=== PATIENT | male | born 1940 | race Caucasian/White ===

== ENCOUNTER 2020-06-03 19:15 | Inpatient (IN) | payer MEDICARE, OTHER ==
--- NOTE | 2020-06-03 22:10 | EDM.PDOC ---
ED HPI GENERAL MEDICAL PROBLEM - General Chief Complaint: General Stated Complaint: "feels out of sorts" Time Seen by Provider: 06/03/20 19:50 Source of Information: Reports: Patient History Limitations: Reports: No Limitations - History of Present Illness INITIAL COMMENTS - FREE TEXT/NARRATIVE: Kiko is a 79 male who presents to the ED, accompanied by his , with complaints of feeling ill. states he has been sleeping a lot the last few days. States he has been confused at times as well. He admits he has been out of sorts. He states he is able to still drive and drove them to the ED tonight. He states he has been short of breath as well. He states he has been really tired and fatigued. Upon arrival his oxygen saturation was 81% on room air. - Related Data Allergies Allergy/AdvReac Type Severity Reaction Status Date / Time hydrocortisone Allergy Severe Chest Pain Verified 06/03/20 19:50 [From Cortizone-10] Home Meds: Home Meds Aspirin [Lo-Dose Aspirin EC] 81 mg PO DAILY 01/25/18 [History] Cholecalciferol (Vitamin D3) [Vitamin D3] 5,000 units PO DAILY 01/25/18 [History] Cinnamon Bark [Cinnamon] 500 mg PO DAILY 01/25/18 [History] Insulin Glarg,Human.Rec.Analog [Lantus Solostar] 44 units SQ BEDTIME 01/25/18 [History] Lisinopril 10 mg PO DAILY 01/25/18 [History] Metoprolol Succinate [Toprol Xl] 25 mg PO DAILY 01/25/18 [History] Multivitamin [Multivitamins] 1 each PO DAILY 01/25/18 [History] Simvastatin [Zocor] 20 mg PO DAILY 01/25/18 [History] SitaGLIPtin [Januvia] 100 mg PO DAILY 01/25/18 [History] metFORMIN HCl [Metformin HCl] 1,000 mg PO BID 01/25/18 [History] Past Medical History HEENT History: Reports: Cataract, Impaired Vision Other HEENT History: cataract left eye Cardiovascular History: Reports: High Cholesterol, Hypertension Respiratory History: Reports: None, SOB, Other (See Below) Other Respiratory History: HX OF LUNG NODULE Gastrointestinal History: Reports: None Genitourinary History: Reports: None, BPH Musculoskeletal History: Reports: Arthritis Other Musculoskeletal History: knee, hip thumb arthritis Neurological History: Reports: None, Other (See Below) Other Neuro History: PARESTHESIAS Psychiatric History: Reports: None Endocrine/Metabolic History: Reports: Diabetes, Type II, Obesity/BMI 30+, Vitamin D Deficiency Hematologic History: Reports: None Immunologic History: Reports: None Oncologic (Cancer) History: Reports: None Dermatologic History: Reports: None - Infectious Disease History Infectious Disease History: Reports: Chicken Pox, Measles, Mumps - Past Surgical History HEENT Surgical History: Reports: Adenoidectomy, Cataract Surgery, Tonsillectomy Cardiovascular Surgical History: Reports: None GI Surgical History: Reports: Appendectomy, Colonoscopy Male Surgical History: Reports: None Endocrine Surgical History: Reports: None Neurological Surgical History: Reports: None Musculoskeletal Surgical History: Reports: None Social & Family History - Family History Family Medical History: Noncontributory - Tobacco Use Tobacco Use Status *Q: Never Tobacco User - Caffeine Use Caffeine Use: Reports: Coffee Caffeine Use Comment: 2 cups daily - Recreational Drug Use Recreational Drug Use: No ED ROS GENERAL - Review of Systems Review Of Systems: See Below Constitutional: Reports: Fatigue. Denies: Fever, Chills, Decreased Appetite HEENT: Reports: No Symptoms. Denies: Sinus Problem, Throat Pain Respiratory: Reports: Shortness of Breath, Cough. Denies: Wheezing Cardiovascular: Denies: Chest Pain, Lightheadedness, Orthopnea, Palpitations Endocrine: Reports: No Symptoms GI/Abdominal: Reports: No Symptoms : Reports: No Symptoms Musculoskeletal: Reports: Muscle Stiffness, Other (body aches) Skin: Reports: No Symptoms Neurological: Reports: Confusion. Denies: Dizziness, Headache, Pre-Existing Deficit, Difficulty Walking, Gait Disturbance Psychiatric: Reports: No Symptoms ED EXAM, GENERAL - Physical Exam Exam: See Below Exam Limited By: No Limitations General Appearance: Alert, Mild Distress, Obese Eye Exam: Bilateral Eye: Normal Inspection Ears: Normal External Exam, Hearing Grossly Normal Nose: Normal Inspection, Normal Mucosa, No Blood Throat/Mouth: Normal Inspection, Normal Lips, Normal Oropharynx, Normal Voice, No Airway Compromise Head: Atraumatic, Normocephalic Neck: Normal Inspection, Supple Respiratory/Chest: No Accessory Muscle Use, Decreased Breath Sounds, Crackles Cardiovascular: Regular Rate, Rhythm, No Murmur GI/Abdominal: Non-Tender, No Organomegaly, Other (morbid obesity) Extremities: Non-Tender, Pedal Edema (1+ bilaterally) Neurological: Alert, Oriented. No: Slow to Respond Psychiatric: Normal Affect, Normal Mood Skin Exam: Warm, Dry, Intact, Normal Color, No Rash Course - Vital Signs Last Recorded V/S: Last Vital Signs Temp 99.5 F 06/03/20 20:20 Pulse 99 06/03/20 20:20 Resp 24 H 06/03/20 20:20 BP 140/79 06/03/20 20:20 Pulse Ox 95 06/03/20 20:20 - Orders/Labs/Meds Orders: Active Orders 24 hr Category Date Time Status Patient Status Manage Transfer [TRANSFER] Routine ADT 06/03/20 21:26 Active CXR [Chest 2V] [CR] Stat Exams 06/03/20 20:33 Taken Resuscitation Status Routine Resus Stat 06/03/20 21:27 Ordered Labs: Laboratory Tests 06/03/20 06/03/20 06/03/20 Range/Units 19:45 19:45 19:45 WBC 5.5 (5.0-10.0) 10^3/uL RBC 4.88 (4.50-6.00) 10^6/uL Hgb 14.4 (14.0-18.0) g/dL Hct 42.5 (40.0-54.0) % MCV 87.1 (82.0-94.0) fL MCH 29.5 (27.0-32.0) pg MCHC 33.9 (33.0-38.0) g/dL RDW Coeff of Rhys 14.7 (11.0-15.0) % Plt Count 155 (150-400) 10^3/uL Neut % (Auto) 77.9 (35-85) % Lymph % (Auto) 12.6 (10-55) % [place] % (Auto) 9.3 (0-16) % Eos % (Auto) 0 (0-5) % Baso % (Auto) 0.2 (0-3) % Neut # (Auto) 4.25 (1.80-7.00) 10^3/uL Lymph # (Auto) 0.69 L (1.00-4.80) 10^3/uL [place] # (Auto) 0.51 (0.00-0.80) 10^3/uL Eos # (Auto) 0.00 (0.00-0.45) 10^3/uL Baso # (Auto) 0.01 10^3/uL D-Dimer, Quantitative (0.00-0.50) Sodium 135 L (136-145) mEq/L Potassium 4.7 (3.5-5.0) mEq/L Chloride 99 (98-106) mEq/L Carbon Dioxide 25 (21-32) mmol/L BUN 42 H D (7-18) mg/dL Creatinine 1.7 H D (0.7-1.3) mg/dL Est Cr Clr Drug Dosing 37.53 mL/min Estimated GFR (MDRD) 39 L (>=60) mL/min Glucose 202 H D (75-99) mg/dL Lactic Acid (0.4-2.0) mmol/L Calcium 8.9 (8.4-10.1) mg/dL Total Bilirubin 0.6 (0.0-1.0) mg/dL AST 33 (15-37) U/L ALT 34 (12-78) U/L Alkaline Phosphatase 65 (46-116) U/L C-Reactive Protein 9.1 H (0.2-0.8) mg/dL Total Protein 7.9 (6.4-8.2) g/dL Albumin 3.5 (3.4-5.0) g/dL SARS CoV-2 RNA Rapid DEB Positive H (NEGATIVE) 06/03/20 06/03/20 Range/Units 19:45 19:45 WBC (5.0-10.0) 10^3/uL RBC (4.50-6.00) 10^6/uL Hgb (14.0-18.0) g/dL Hct (40.0-54.0) % MCV (82.0-94.0) fL MCH (27.0-32.0) pg MCHC (33.0-38.0) g/dL RDW Coeff of Rhys (11.0-15.0) % Plt Count (150-400) 10^3/uL Neut % (Auto) (35-85) % Lymph % (Auto) (10-55) % [place] % (Auto) (0-16) % Eos % (Auto) (0-5) % Baso % (Auto) (0-3) % Neut # (Auto) (1.80-7.00) 10^3/uL Lymph # (Auto) (1.00-4.80) 10^3/uL [place] # (Auto) (0.00-0.80) 10^3/uL Eos # (Auto) (0.00-0.45) 10^3/uL Baso # (Auto) 10^3/uL D-Dimer, Quantitative 1.22 H (0.00-0.50) Sodium (136-145) mEq/L Potassium (3.5-5.0) mEq/L Chloride (98-106) mEq/L Carbon Dioxide (21-32) mmol/L BUN (7-18) mg/dL Creatinine (0.7-1.3) mg/dL Est Cr Clr Drug Dosing mL/min Estimated GFR (MDRD) (>=60) mL/min Glucose (75-99) mg/dL Lactic Acid 1.5 (0.4-2.0) mmol/L Calcium (8.4-10.1) mg/dL Total Bilirubin (0.0-1.0) mg/dL AST (15-37) U/L ALT (12-78) U/L Alkaline Phosphatase (46-116) U/L C-Reactive Protein (0.2-0.8) mg/dL Total Protein (6.4-8.2) g/dL Albumin (3.4-5.0) g/dL SARS CoV-2 RNA Rapid DEB (NEGATIVE) Departure - Departure Time of Disposition: 21:25 Disposition: Admitted As Inpatient 66 Clinical Impression: Hypoxia, Palliative care patient, COVID-19 - Discharge Information Referrals: Erika Melara VERIFIER [Primary Care Provider] - Forms: ED Department Discharge Sepsis Event Note (ED) - Evaluation Sepsis Screening Result: No Definite Risk - Focused Exam Vital Signs: Vital Signs Temp Pulse Resp BP Pulse Ox 06/03/20 20:20 99.5 F 99 24 H 140/79 95 06/03/20 19:50 94 L 06/03/20 19:45 86 L 06/03/20 19:40 99.2 F 102 H 17 144/75 H 81 L - Problem List & Annotations (1) COVID-19 SNOMED Code(s): 263360364 Code(s): U07.1 - COVID-19 Status: Acute (2) Hypoxia SNOMED Code(s): 356514813 Code(s): R09.02 - HYPOXEMIA Status: Acute Priority: High (3) Palliative care patient SNOMED Code(s): 662602597, 632450764 Code(s): Z51.5 - ENCOUNTER FOR PALLIATIVE CARE Status: Acute - Problem List Review Problem List Initiated/Reviewed/Updated: Yes - My Orders Last 24 Hours: My Active Orders 06/03/20 20:33 CXR [Chest 2V] [CR] Stat 06/03/20 21:26 Patient Status Manage Transfer [TRANSFER] Routine 06/03/20 21:27 Resuscitation Status Routine - Assessment/Plan Admission H&P: Please use this note as an admission H&P Last 24 Hours: My Active Orders 06/03/20 20:33 CXR [Chest 2V] [CR] Stat 06/03/20 21:26 Patient Status Manage Transfer [TRANSFER] Routine 06/03/20 21:27 Resuscitation Status Routine Plan: Kiko was immediately placed on oxygen via nasal canula at 6 lpm which did only bring his oxygen to 86%. Switched to nonrebreather at 15 lpm which did bring oxygen saturation to 96%. Covid positive and discussed into detail with Kiko his current status. Confusion thru the week was likely secondary to hypoxia. I am concerned that Kiko may worsen during his stay and discussed transfer to higher level of care. Kiko was adamant about not being transferred and wished to be a Code Level 2. Discussed Code levels and he voiced his wishes to not ever being intubated or start CPR. He states " when the good Lord wants him he is ready". I did advise him we will need to keep him on non-rebreather at this time to maintain his oxygen saturation above 90%. Consulted with Dr. Arnold in regards to Kiko's condition and will admit to acute care. Will start IV Remdesivir. Will refrain from steroids at this time with known allergy to hydrocortisone. Patient transferred to the floor in satisfactory condition.
[2020-06-03] MEDS ORDERED: Ibuprofen 200 MG Tab PO PRN (22:48)
[2020-06-03] MEDS ORDERED: Sodium Chloride 0.9% 10 ML Syringe FLUSH PRN (22:48)
[2020-06-04] MEDS: Acetaminophen 325 MG Tab PO PRN ×3 (00:17→22:57)
[2020-06-04] MEDS: Enoxaparin 40 MG/0.4 ML Syringe SUBCUT SCH ×3 (00:18→21:48)
[2020-06-04] MEDS: Enoxaparin 80 MG/0.8 ML Syringe SUBCUT SCH ×3 (00:18→21:48)
[2020-06-04] MEDS: Simvastatin 20 MG Tab PO SCH (07:58)
[2020-06-04] MEDS: Zinc Sulfate 220 MG Cap PO SCH (07:59)
[2020-06-04] MEDS: Lisinopril 10 MG Tab PO SCH (07:59)
[2020-06-04] MEDS: Ascorbic Acid 500 MG Tab PO SCH (07:59)
[2020-06-04] MEDS: Cholecalciferol (Vitamin D3) 25 MCG Tab PO SCH (08:00)
[2020-06-04] MEDS: Metoprolol Succinate 25 MG Tab.ER PO SCH (08:00)
[2020-06-04] MEDS: Insulin Glarg,Human.Rec.Analog 100 Unit/ML SUBCUT SCH ×2 (08:07→20:02)
[2020-06-04] MEDS: Aspirin 81 MG Tab.EC PO SCH (08:56)
[2020-06-04] MEDS ORDERED: 50% Dextrose in Water 50 ML Syringe IV PRN (10:05)
[2020-06-04] MEDS ORDERED: Glucagon,Human Recombinant 1 MG Vial IM PRN (10:05)
[2020-06-04] MEDS: Insulin Lispro 100 Units/ML 3 ML Vial SUBCUT SCH ×3 (12:03→20:04)
[2020-06-04] MEDS: metFORMIN 500 MG Tab PO SCH ×2 (12:04→19:59)
[2020-06-04] MEDS: REMDESIVIR (EUA) 100 MG in Sodium Chloride 0.9% 100 ML IV SCH (21:47)
[2020-06-05] MEDS: Acetaminophen 325 MG Tab PO PRN ×2 (04:07→16:59)
[2020-06-05] MEDS ORDERED: [UNRECOGNIZED DRUG - OTHER] SUBCUT SCH (07:00)
[2020-06-05] MEDS ORDERED: INSULIN GLARG HUMAN REC ANALOG 15 UNIT SUBCUT SCH (07:00)
[2020-06-05] MEDS: Ascorbic Acid 500 MG Tab PO SCH (07:36)
[2020-06-05] MEDS: Lisinopril 10 MG Tab PO SCH (07:36)
[2020-06-05] MEDS: Zinc Sulfate 220 MG Cap PO SCH (07:36)
[2020-06-05] MEDS: Simvastatin 20 MG Tab PO SCH (07:37)
[2020-06-05] MEDS: Aspirin 81 MG Tab.EC PO SCH (07:37)
[2020-06-05] MEDS: Metoprolol Succinate 25 MG Tab.ER PO SCH (07:37)
[2020-06-05] MEDS: metFORMIN 500 MG Tab PO SCH ×2 (07:37→19:46)
[2020-06-05] MEDS: Insulin Lispro 100 Units/ML 3 ML Vial SUBCUT SCH ×4 (07:44→20:06)
[2020-06-05] MEDS: Insulin Glarg,Human.Rec.Analog 100 Unit/ML SUBCUT SCH ×2 (07:46→19:46)
--- NOTE | 2020-06-05 07:47 | PCM.PN ---
- General Info Date of Service: 06/04/20 Admission Dx/Problem (Free Text): Kiko is a 79 yo male who was admitted from the ED yesterday evening secondary to hypoxia with positive COVID 19. Patient had been experiencing some confusion over the last week and an increase in respiratory effort. Was admitted with palliative status as patient was found to be in moderate to severe hypoxia and placed on non-rebreather at 15 lpm. Kiko did not want anything further done or transfer to outside facility. Patient states he is feeling great this morning and denies any shortness of breath. States his confusion is a lot better as well. Denies feeling out of sorts anymore. States he has had a great appetite and doesn't feel he needs oxygen anymore. Functional Status: Reports: Pain Controlled, Tolerating Diet, Ambulating. Denies: New Symptoms - Review of Systems General: Reports: No Symptoms HEENT: Reports: No Symptoms Pulmonary: Reports: No Symptoms Cardiovascular: Reports: No Symptoms Gastrointestinal: Reports: No Symptoms Genitourinary: Reports: No Symptoms Musculoskeletal: Reports: No Symptoms Skin: Reports: No Symptoms Neurological: Reports: No Symptoms Psychiatric: Reports: No Symptoms - Patient Data Vitals - Most Recent: Last Vital Signs Temp 99.1 F 06/05/20 04:00 Pulse 77 06/05/20 07:37 Resp 20 06/05/20 04:00 BP 110/52 L 06/05/20 07:37 Pulse Ox 93 L 06/05/20 04:00 Weight - Most Recent: 272 lb 9.6 oz Lab Results Last 24 Hours: Laboratory Results - last 24 hr 06/04/20 06/04/20 06/05/20 Range/Units 05:11 05:11 07:02 WBC 3.9 L 4.0 L (5.0-10.0) 10^3/uL RBC 4.29 L 4.26 L (4.50-6.00) 10^6/uL Hgb 12.8 L 12.5 L (14.0-18.0) g/dL Hct 37.9 L 37.3 L (40.0-54.0) % MCV 88.3 87.6 (82.0-94.0) fL MCH 29.8 29.3 (27.0-32.0) pg MCHC 33.8 33.5 (33.0-38.0) g/dL RDW Coeff of Rhys 14.7 14.5 (11.0-15.0) % Plt Count 153 175 (150-400) 10^3/uL Neut % (Auto) 68.4 60.9 (35-85) % Lymph % (Auto) 20.9 28.4 (10-55) % [place] % (Auto) 10.4 10.1 (0-16) % Eos % (Auto) 0 0.3 (0-5) % Baso % (Auto) 0.3 0.3 (0-3) % Neut # (Auto) 2.69 2.41 (1.80-7.00) 10^3/uL Lymph # (Auto) 0.82 L 1.12 (1.00-4.80) 10^3/uL [place] # (Auto) 0.41 0.40 (0.00-0.80) 10^3/uL Eos # (Auto) 0.00 0.01 (0.00-0.45) 10^3/uL Baso # (Auto) 0.01 0.01 10^3/uL Sodium 136 (136-145) mEq/L Potassium 4.4 (3.5-5.0) mEq/L Chloride 99 (98-106) mEq/L Carbon Dioxide 26 (21-32) mmol/L BUN 40 H (7-18) mg/dL Creatinine 1.5 H (0.7-1.3) mg/dL Est Cr Clr Drug Dosing 43.83 mL/min Estimated GFR (MDRD) 45 L (>=60) mL/min Glucose 219 H (75-99) mg/dL Calcium 8.2 L (8.4-10.1) mg/dL Total Bilirubin 0.4 (0.0-1.0) mg/dL AST 29 (15-37) U/L ALT 30 (12-78) U/L Alkaline Phosphatase 58 (46-116) U/L C-Reactive Protein 9.4 H (0.2-0.8) mg/dL Total Protein 7.0 (6.4-8.2) g/dL Albumin 3.0 L (3.4-5.0) g/dL Med Orders - Current: Current Medications Acetaminophen (Tylenol) 650 mg PO Q4H PRN PRN Reason: Pain (Mild 1-3)/fever Last Admin: 06/05/20 04:07 Dose: 650 mg Documented by: Alogliptin Benzoate (Alogliptin) 25 mg PO DAILY [facility] Last Admin: 06/05/20 07:37 Dose: 25 mg Documented by: Ascorbic Acid (Vitamin C) 500 mg PO DAILY [facility] Last Admin: 06/05/20 07:36 Dose: 500 mg Documented by: Aspirin (Halfprin) 81 mg PO DAILY [facility] Last Admin: 06/05/20 07:37 Dose: 81 mg Documented by: Cholecalciferol (Vitamin D3) 125 mcg PO DAILY [facility] Last Admin: 06/04/20 08:00 Dose: 125 mcg Documented by: Dextrose/Water (Dextrose 50% In Water) 50 ml IV ASDIRECTED PRN PRN Reason: Hypoglycemia Enoxaparin Sodium (Lovenox) 80 mg SUBCUT BID@1000,2200 [facility] Last Admin: 06/04/20 21:48 Dose: 80 mg Documented by: Enoxaparin Sodium (Lovenox) 40 mg SUBCUT BID@1000,2200 [facility] Last Admin: 06/04/20 21:48 Dose: 40 mg Documented by: Glucagon (Glucagen) 1 mg IM ASDIRECTED PRN PRN Reason: Hypoglycemia Remdesivir 100 mg/ Sodium (Chloride) 100 mls @ 100 mls/hr IV Q24H [facility] Stop: 06/07/20 22:59 Last Admin: 06/04/20 21:47 Dose: 100 mls/hr Documented by: Ibuprofen (Motrin) 400 mg PO Q6H PRN PRN Reason: Pain (mild 1-3) Last Admin: 06/04/20 14:43 Dose: 400 mg Documented by: Insulin Glargine (Lantus) 60 unit SUBCUT BEDTIME [facility] Last Admin: 06/04/20 20:02 Dose: 60 units Documented by: Insulin Glargine (Lantus) 15 unit SUBCUT DAILY [facility] Last Admin: 06/04/20 08:07 Dose: 15 units Documented by: Insulin Human Lispro (Humalog) 0 unit SUBCUT WITHMEALSANDBED [facility]; Protocol Last Admin: 06/04/20 20:04 Dose: 6 units Documented by: Lisinopril (Prinivil) 10 mg PO DAILY [facility] Last Admin: 06/05/20 07:36 Dose: 10 mg Documented by: Metformin HCl (Glucophage) 500 mg PO BID [facility] Last Admin: 06/05/20 07:37 Dose: 500 mg Documented by: Metoprolol Succinate (Toprol Xl) 25 mg PO DAILY [facility] Last Admin: 06/05/20 07:37 Dose: 25 mg Documented by: Simvastatin (Zocor) 20 mg PO DAILY [facility] Last Admin: 06/05/20 07:37 Dose: 20 mg Documented by: Sodium Chloride (Saline Flush) 10 ml FLUSH ASDIRECTED PRN PRN Reason: Keep Vein Open Zinc Sulfate (Zincate) 220 mg PO DAILY [facility] Last Admin: 06/05/20 07:36 Dose: 220 mg Documented by: Discontinued Medications Remdesivir 200 mg/ Sodium (Chloride) 250 mls @ 250 mls/hr IV ONETIME ONE Stop: 06/03/20 22:49 Last Admin: 06/04/20 00:18 Dose: 250 mls/hr Documented by: Non-Formulary Medication (Alogliptin Benzoate [Alogliptin]) 25 mg PO DAILY [facility] Non-Formulary Medication (Insulin Glarg,Human.Rec.Analog [Lantus Solostar]) 15 units SUBCUT ACBREAKFAST [facility] - Exam Quality Assessment: Supplemental Oxygen (currently not on as patient is eating. ) General: Alert, Oriented Lungs: Normal Respiratory Effort (no sign of increased breathing today), Crackles (bilateral bases). No: Wheezing Cardiovascular: Regular Rate, Regular Rhythm GI/Abdominal Exam: Normal Bowel Sounds, Soft, Non-Tender, No Distention Skin: Warm, Dry, Intact Neurological: No New Focal Deficit Psy/Mental Status: Alert, Normal Affect, Normal Mood Sepsis Event Note - Evaluation Sepsis Screening Result: No Definite Risk - Focused Exam Vital Signs: Vital Signs Temp Pulse Pulse Resp BP BP Pulse Ox 06/05/20 07:37 77 110/52 L 06/05/20 07:36 110/52 L 06/05/20 04:00 99.1 F 84 20 119/55 L 93 L 06/05/20 00:30 98.5 F 06/04/20 23:14 99.7 F 86 20 118/45 L 93 L 06/04/20 20:00 98.5 F 81 20 105/49 L 93 L - Problem List & Annotations (1) COVID-19 SNOMED Code(s): 457490745 Code(s): U07.1 - COVID-19 Status: Acute Current Visit: No (2) Hypoxia SNOMED Code(s): 399864189 Code(s): R09.02 - HYPOXEMIA Status: Acute Priority: High Current Visit: No (3) Palliative care patient SNOMED Code(s): 428696768, 613457445 Code(s): Z51.5 - ENCOUNTER FOR PALLIATIVE CARE Status: Acute Current Visit: No - Problem List Review Problem List Initiated/Reviewed/Updated: Yes - My Orders Last 24 Hours: My Active Orders 06/04/20 08:00 Alogliptin Benzoate [Alogliptin] 25 mg PO DAILY Ascorbic Acid [Vitamin C] 500 mg PO DAILY Aspirin [Halfprin] 81 mg PO DAILY Cholecalciferol (Vitamin D3) [Vitamin D3] 125 mcg PO DAILY Insulin Glarg,Human.Rec.Analog [LantUS] 15 unit SUBCUT DAILY Metoprolol Succinate [Toprol XL] 25 mg PO DAILY Simvastatin [Zocor] 20 mg PO DAILY Zinc Sulfate [Zincate] 220 mg PO DAILY lisinopriL [Prinivil] 10 mg PO DAILY 06/04/20 10:05 Dextrose 50% in Water 50 ml IV ASDIRECTED PRN Glucagon,Human Recombinant [GlucaGen] 1 mg IM ASDIRECTED PRN 06/04/20 12:00 Insulin Lispro [HumaLOG] See Protocol SUBCUT WITHMEALSANDBED metFORMIN [Glucophage] 500 mg PO BID 06/04/20 20:00 Insulin Glarg,Human.Rec.Analog [LantUS] 60 unit SUBCUT BEDTIME 06/04/20 22:00 Remdesivir (Eua) [Remdesivir (EUA)] 100 mg Sodium Chloride 0.9% [Normal Salin e] 100 ml IV Q24H 06/05/20 07:02 COMPREHENSIVE METABOLIC PN,CMP [CHEM] AM D Dimer [D-DIMER QUANTITATIVE] [COAG] AM 06/06/20 05:11 CBC WITH AUTO DIFF [HEME] AM COMPREHENSIVE METABOLIC PN,CMP [CHEM] AM D Dimer [D-DIMER QUANTITATIVE] [COAG] AM - Plan Plan:: Kiko appears to be doing much better today. They have been able to wean him down off nonrebreather at 15lpm to regular mask at 7 lpm. Will continue to gradually wean down if tolerated. Labs overall have remained stable from yesterday evening and will repeat in am. Will continue with IV remdesivir and oral dexamethasone. Patient verbalized understanding.
[2020-06-05] MEDS ORDERED: ALOGLIPTIN BENZOATE 25 MG PO SCH (08:00)
[2020-06-05] MEDS: Enoxaparin 80 MG/0.8 ML Syringe SUBCUT SCH (10:28)
[2020-06-05] MEDS: Enoxaparin 40 MG/0.4 ML Syringe SUBCUT SCH (10:28)
[2020-06-05] MEDS: Cholecalciferol (Vitamin D3) 25 MCG Tab PO SCH (12:19)
[2020-06-05] MEDS: Enoxaparin 60 MG/0.6 ML Syringe SUBCUT SCH (19:46)
[2020-06-05] MEDS: REMDESIVIR (EUA) 100 MG in Sodium Chloride 0.9% 100 ML IV SCH (21:09)
--- NOTE | 2020-06-05 22:47 | PCM.PN ---
- General Info Date of Service: 06/05/20 Admission Dx/Problem (Free Text): Kiko is a 79 yo male who was admitted from the ED yesterday evening secondary to hypoxia with positive COVID 19. Patient had been experiencing some confusion over the last week and an increase in respiratory effort. Was admitted with palliative status as patient was found to be in moderate to severe hypoxia and placed on non-rebreather at 15 lpm. Kiko did not want anything further done or transfer to outside facility. Patient states he is feeling great this morning and denies any shortness of breath. States his confusion is a lot better as well. Denies feeling out of sorts anymore. States he has had a great appetite and doesn't feel he needs oxygen anymore. Functional Status: Reports: Tolerating Diet - Review of Systems General: Denies: Fever, Fatigue, Malaise HEENT: Reports: No Symptoms Pulmonary: Reports: Shortness of Breath. Denies: Cough, Wheezing Cardiovascular: Reports: No Symptoms. Denies: Chest Pain Gastrointestinal: Reports: Diarrhea. Denies: Abdominal Pain, Nausea, Vomiting Genitourinary: Reports: No Symptoms Musculoskeletal: Reports: No Symptoms Skin: Reports: No Symptoms Neurological: Reports: No Symptoms - Patient Data Vitals - Most Recent: Last Vital Signs Temp 97 F 06/05/20 20:00 Pulse 68 06/05/20 20:00 Resp 18 06/05/20 20:00 BP 128/62 06/05/20 20:00 Pulse Ox 92 L 06/05/20 20:00 Weight - Most Recent: 272 lb 9.6 oz Lab Results Last 24 Hours: Laboratory Results - last 24 hr 06/05/20 06/05/20 06/05/20 Range/Units 07:02 07:02 07:02 WBC 4.0 L (5.0-10.0) 10^3/uL RBC 4.26 L (4.50-6.00) 10^6/uL Hgb 12.5 L (14.0-18.0) g/dL Hct 37.3 L (40.0-54.0) % MCV 87.6 (82.0-94.0) fL MCH 29.3 (27.0-32.0) pg MCHC 33.5 (33.0-38.0) g/dL RDW Coeff of Rhys 14.5 (11.0-15.0) % Plt Count 175 (150-400) 10^3/uL Neut % (Auto) 60.9 (35-85) % Lymph % (Auto) 28.4 (10-55) % [place] % (Auto) 10.1 (0-16) % Eos % (Auto) 0.3 (0-5) % Baso % (Auto) 0.3 (0-3) % Neut # (Auto) 2.41 (1.80-7.00) 10^3/uL Lymph # (Auto) 1.12 (1.00-4.80) 10^3/uL [place] # (Auto) 0.40 (0.00-0.80) 10^3/uL Eos # (Auto) 0.01 (0.00-0.45) 10^3/uL Baso # (Auto) 0.01 10^3/uL D-Dimer, Quantitative 0.79 H (0.00-0.50) Sodium 135 L (136-145) mEq/L Potassium 4.2 (3.5-5.0) mEq/L Chloride 101 (98-106) mEq/L Carbon Dioxide 24 (21-32) mmol/L BUN 48 H (7-18) mg/dL Creatinine 1.7 H (0.7-1.3) mg/dL Est Cr Clr Drug Dosing 38.67 mL/min Estimated GFR (MDRD) 39 L (>=60) mL/min Glucose 165 H (75-99) mg/dL Calcium 8.2 L (8.4-10.1) mg/dL Total Bilirubin 0.3 (0.0-1.0) mg/dL AST 32 (15-37) U/L ALT 28 (12-78) U/L Alkaline Phosphatase 57 (46-116) U/L Total Protein 6.8 (6.4-8.2) g/dL Albumin 2.9 L (3.4-5.0) g/dL Med Orders - Current: Current Medications Acetaminophen (Tylenol) 650 mg PO Q4H PRN PRN Reason: Pain (Mild 1-3)/fever Last Admin: 06/05/20 16:59 Dose: 650 mg Documented by: Alogliptin Benzoate (Alogliptin) 25 mg PO DAILY [facility] Last Admin: 06/05/20 07:37 Dose: 25 mg Documented by: Ascorbic Acid (Vitamin C) 500 mg PO DAILY [facility] Last Admin: 06/05/20 07:36 Dose: 500 mg Documented by: Aspirin (Halfprin) 81 mg PO DAILY [facility] Last Admin: 06/05/20 07:37 Dose: 81 mg Documented by: Cholecalciferol (Vitamin D3) 125 mcg PO DAILY [facility] Last Admin: 06/05/20 12:19 Dose: Not Given Documented by: Dextrose/Water (Dextrose 50% In Water) 50 ml IV ASDIRECTED PRN PRN Reason: Hypoglycemia Enoxaparin Sodium (Lovenox) 60 mg SUBCUT BID [facility] Last Admin: 06/05/20 19:46 Dose: 60 mg Documented by: Glucagon (Glucagen) 1 mg IM ASDIRECTED PRN PRN Reason: Hypoglycemia Remdesivir 100 mg/ Sodium (Chloride) 100 mls @ 100 mls/hr IV Q24H [facility] Stop: 06/07/20 22:59 Last Admin: 06/05/20 21:09 Dose: 100 mls/hr Documented by: Ibuprofen (Motrin) 400 mg PO Q6H PRN PRN Reason: Pain (mild 1-3) Last Admin: 06/04/20 14:43 Dose: 400 mg Documented by: Insulin Glargine (Lantus) 60 unit SUBCUT BEDTIME [facility] Last Admin: 06/05/20 19:46 Dose: 60 units Documented by: Insulin Glargine (Lantus) 15 unit SUBCUT DAILY [facility] Last Admin: 06/05/20 07:46 Dose: 15 units Documented by: Insulin Human Lispro (Humalog) 0 unit SUBCUT WITHMEALSANDBED [facility]; Protocol Last Admin: 06/05/20 20:06 Dose: 6 units Documented by: Lisinopril (Prinivil) 10 mg PO DAILY [facility] Last Admin: 06/05/20 07:36 Dose: 10 mg Documented by: Metformin HCl (Glucophage) 500 mg PO BID [facility] Last Admin: 06/05/20 19:46 Dose: 500 mg Documented by: Metoprolol Succinate (Toprol Xl) 25 mg PO DAILY [facility] Last Admin: 06/05/20 07:37 Dose: 25 mg Documented by: Simvastatin (Zocor) 20 mg PO DAILY [facility] Last Admin: 06/05/20 07:37 Dose: 20 mg Documented by: Sodium Chloride (Saline Flush) 10 ml FLUSH ASDIRECTED PRN PRN Reason: Keep Vein Open Zinc Sulfate (Zincate) 220 mg PO DAILY [facility] Last Admin: 06/05/20 07:36 Dose: 220 mg Documented by: Discontinued Medications Enoxaparin Sodium (Lovenox) 80 mg SUBCUT BID@1000,2200 [facility] Last Admin: 06/05/20 10:28 Dose: 80 mg Documented by: Enoxaparin Sodium (Lovenox) 40 mg SUBCUT BID@1000,2200 [facility] Last Admin: 06/05/20 10:28 Dose: 40 mg Documented by: Remdesivir 200 mg/ Sodium (Chloride) 250 mls @ 250 mls/hr IV ONETIME ONE Stop: 06/03/20 22:49 Last Admin: 06/04/20 00:18 Dose: 250 mls/hr Documented by: Non-Formulary Medication (Alogliptin Benzoate [Alogliptin]) 25 mg PO DAILY [facility] Non-Formulary Medication (Insulin Glarg,Human.Rec.Analog [Lantus Solostar]) 15 units SUBCUT ACBREAKFAST [facility] - Exam Quality Assessment: Supplemental Oxygen General: Alert, Oriented, Cooperative, No Acute Distress HEENT: Mucous Membr. Moist/[place] Neck: Supple Lungs: Normal Respiratory Effort, Decreased Breath Sounds, Crackles (bilateral bases) Cardiovascular: Regular Rate, Regular Rhythm GI/Abdominal Exam: Soft, Non-Tender Extremities: Normal Inspection, No Pedal Edema Skin: Warm, Dry, Intact Psy/Mental Status: Alert, Normal Affect, Normal Mood Sepsis Event Note - Evaluation Sepsis Screening Result: No Definite Risk - Focused Exam Vital Signs: Vital Signs Temp Pulse Resp BP Pulse Ox 06/05/20 20:00 97 F 68 18 128/62 92 L 06/05/20 16:00 100.8 F H 87 20 138/63 90 L 06/05/20 12:00 97.1 F 90 24 H 150/57 H 93 L - Problem List & Annotations (1) COVID-19 SNOMED Code(s): 563449119 Code(s): U07.1 - COVID-19 Status: Acute Current Visit: No (2) Hypoxia SNOMED Code(s): 628589101 Code(s): R09.02 - HYPOXEMIA Status: Acute Priority: High Current Visit: No (3) Palliative care patient SNOMED Code(s): 047630477, 748245039 Code(s): Z51.5 - ENCOUNTER FOR PALLIATIVE CARE Status: Acute Current Visit: No - Problem List Review Problem List Initiated/Reviewed/Updated: Yes - My Orders Last 24 Hours: My Active Orders 06/04/20 22:00 Remdesivir (Eua) [Remdesivir (EUA)] 100 mg Sodium Chloride 0.9% [Normal Saline] 100 ml IV Q24H 06/05/20 20:00 Enoxaparin [Lovenox] 60 mg SUBCUT BID 06/06/20 05:11 CBC WITH AUTO DIFF [HEME] AM COMPREHENSIVE METABOLIC PN,CMP [CHEM] AM D Dimer [D-DIMER QUANTITATIVE] [COAG] AM INR,PT,PROTHROMBIN TIME [COAG] AM 06/07/20 05:11 INR,PT,PROTHROMBIN TIME [COAG] AM - Plan Plan:: 06/04/2020 Kiko appears to be doing much better today. They have been able to wean him down off nonrebreather at 15lpm to regular mask at 7 lpm. Will continue to gradually wean down if tolerated. Labs overall have remained stable from yesterday evening and will repeat in am. Will continue with IV remdesivir and oral dexamethasone. Patient verbalized understanding. 06/05/2020 Kiko is sitting up in bed appears to be in no distress. He continues to be on regular mask at 7 L/min. Attempted to wean down and patient immediately dropped into the 80's. Will continue with supplemental oxygen. D-dimer has decreased. All other labs stable. Will decrease Lovenox to 60mg SC BID. Will closely monitor. Will continue current dexamethasone and Remdesivir treatment. Kiko verbalized understanding.
[2020-06-06 07:32] LABS: CHLORIDE,CL 100 mEq/L (98-106); SODIUM,NA 135 mEq/L (136-145)
[2020-06-06] MEDS: Enoxaparin 60 MG/0.6 ML Syringe SUBCUT SCH ×2 (08:05→20:02)
[2020-06-06] MEDS: Cholecalciferol (Vitamin D3) 25 MCG Tab PO SCH (08:06)
[2020-06-06] MEDS: Lisinopril 10 MG Tab PO SCH (08:15)
[2020-06-06] MEDS: Metoprolol Succinate 25 MG Tab.ER PO SCH (08:16)
[2020-06-06] MEDS: Simvastatin 20 MG Tab PO SCH (08:16)
[2020-06-06] MEDS: Ascorbic Acid 500 MG Tab PO SCH (08:16)
[2020-06-06] MEDS: Zinc Sulfate 220 MG Cap PO SCH (08:16)
[2020-06-06] MEDS: Aspirin 81 MG Tab.EC PO SCH (08:16)
[2020-06-06] MEDS: metFORMIN 500 MG Tab PO SCH ×2 (08:16→20:02)
[2020-06-06] MEDS: Insulin Lispro 100 Units/ML 3 ML Vial SUBCUT SCH ×4 (08:17→20:06)
[2020-06-06] MEDS: Insulin Glarg,Human.Rec.Analog 100 Unit/ML SUBCUT SCH ×2 (08:18→20:04)
--- NOTE | 2020-06-06 09:28 | PCM.PN ---
- General Info Date of Service: 06/06/20 Admission Dx/Problem (Free Text): Kiko is a 79 yo male who was admitted from the ED secondary to hypoxia with positive COVID 19. Patient had been experiencing some confusion over the last week and an increase in respiratory effort. Was admitted with palliative status as patient was found to be in moderate to severe hypoxia and placed on non- rebreather at 15 lpm. Kiko did not want anything further done or transfer to outside facility. He states today he isn't feeling as well as he did yesterday, more so, just tired. Admits he didn't get a lot of sleep last night. Denies any shortness of breath unless exerting himself. States he has been doing fine getting up to go to the bathroom on his own. Had a bout of diarrhea yesterday but states that has went away. Functional Status: Reports: Pain Controlled, Tolerating Diet, Incentive Spirometry - Review of Systems General: Reports: Weakness, Fatigue. Denies: Fever HEENT: Reports: No Symptoms Pulmonary: Reports: Shortness of Breath Cardiovascular: Reports: No Symptoms Gastrointestinal: Reports: No Symptoms Genitourinary: Reports: No Symptoms Musculoskeletal: Reports: No Symptoms Neurological: Reports: No Symptoms. Denies: Confusion Psychiatric: Reports: No Symptoms - Patient Data Vitals - Most Recent: Last Vital Signs Temp 99 F 06/06/20 04:00 Pulse 88 06/06/20 08:16 Resp 20 06/06/20 04:00 BP 120/60 06/06/20 08:16 Pulse Ox 93 L 06/06/20 04:00 Weight - Most Recent: 272 lb 9.6 oz Lab Results Last 24 Hours: Laboratory Results - last 24 hr 06/06/20 06/06/20 06/06/20 Range/Units 07:00 07:00 07:00 WBC 5.1 (5.0-10.0) 10^3/uL RBC 4.60 (4.50-6.00) 10^6/uL Hgb 13.3 L (14.0-18.0) g/dL Hct 39.8 L (40.0-54.0) % MCV 86.5 (82.0-94.0) fL MCH 28.9 (27.0-32.0) pg MCHC 33.4 (33.0-38.0) g/dL RDW Coeff of Rhys 14.2 (11.0-15.0) % Plt Count 207 (150-400) 10^3/uL Neut % (Auto) 73.6 (35-85) % Lymph % (Auto) 17.7 (10-55) % [place] % (Auto) 8.3 (0-16) % Eos % (Auto) 0.2 (0-5) % Baso % (Auto) 0.2 (0-3) % Neut # (Auto) 3.75 (1.80-7.00) 10^3/uL Lymph # (Auto) 0.90 L (1.00-4.80) 10^3/uL [place] # (Auto) 0.42 (0.00-0.80) 10^3/uL Eos # (Auto) 0.01 (0.00-0.45) 10^3/uL Baso # (Auto) 0.01 10^3/uL PT 10.0 (9.7-12.3) SEC INR 0.99 (0.92-1.18) D-Dimer, Quantitative 1.05 H (0.00-0.50) Sodium 135 L (136-145) mEq/L Potassium 4.3 (3.5-5.0) mEq/L Chloride 100 (98-106) mEq/L Carbon Dioxide 27 (21-32) mmol/L BUN 26 H (7-18) mg/dL Creatinine 1.1 (0.7-1.3) mg/dL Est Cr Clr Drug Dosing 59.77 mL/min Estimated GFR (MDRD) > 60 (>=60) mL/min Glucose 129 H (75-99) mg/dL Calcium 8.2 L (8.4-10.1) mg/dL Total Bilirubin 0.4 (0.0-1.0) mg/dL AST 34 (15-37) U/L ALT 27 (12-78) U/L Alkaline Phosphatase 65 (46-116) U/L Total Protein 7.0 (6.4-8.2) g/dL Albumin 3.0 L (3.4-5.0) g/dL Med Orders - Current: Current Medications Acetaminophen (Tylenol) 650 mg PO Q4H PRN PRN Reason: Pain (Mild 1-3)/fever Last Admin: 06/05/20 16:59 Dose: 650 mg Documented by: Alogliptin Benzoate (Alogliptin) 25 mg PO DAILY [facility] Last Admin: 06/06/20 08:07 Dose: 25 mg Documented by: Ascorbic Acid (Vitamin C) 500 mg PO DAILY [facility] Last Admin: 06/06/20 08:16 Dose: 500 mg Documented by: Aspirin (Halfprin) 81 mg PO DAILY [facility] Last Admin: 06/06/20 08:16 Dose: 81 mg Documented by: Cholecalciferol (Vitamin D3) 125 mcg PO DAILY [facility] Last Admin: 06/06/20 08:06 Dose: 125 mcg Documented by: Dextrose/Water (Dextrose 50% In Water) 50 ml IV ASDIRECTED PRN PRN Reason: Hypoglycemia Enoxaparin Sodium (Lovenox) 60 mg SUBCUT BID [facility] Last Admin: 06/06/20 08:05 Dose: 60 mg Documented by: Glucagon (Glucagen) 1 mg IM ASDIRECTED PRN PRN Reason: Hypoglycemia Remdesivir 100 mg/ Sodium (Chloride) 100 mls @ 100 mls/hr IV Q24H [facility] Stop: 06/07/20 22:59 Last Admin: 06/05/20 21:09 Dose: 100 mls/hr Documented by: Ibuprofen (Motrin) 400 mg PO Q6H PRN PRN Reason: Pain (mild 1-3) Last Admin: 06/04/20 14:43 Dose: 400 mg Documented by: Insulin Glargine (Lantus) 60 unit SUBCUT BEDTIME [facility] Last Admin: 06/05/20 19:46 Dose: 60 units Documented by: Insulin Glargine (Lantus) 15 unit SUBCUT DAILY [facility] Last Admin: 06/06/20 08:18 Dose: 15 units Documented by: Insulin Human Lispro (Humalog) 0 unit SUBCUT WITHMEALSANDBED [facility]; Protocol Last Admin: 06/06/20 08:17 Dose: Not Given Documented by: Lisinopril (Prinivil) 10 mg PO DAILY [facility] Last Admin: 06/06/20 08:15 Dose: 10 mg Documented by: Metformin HCl (Glucophage) 500 mg PO BID [facility] Last Admin: 06/06/20 08:16 Dose: 500 mg Documented by: Metoprolol Succinate (Toprol Xl) 25 mg PO DAILY [facility] Last Admin: 06/06/20 08:16 Dose: 25 mg Documented by: Simvastatin (Zocor) 20 mg PO DAILY [facility] Last Admin: 06/06/20 08:16 Dose: 20 mg Documented by: Sodium Chloride (Saline Flush) 10 ml FLUSH ASDIRECTED PRN PRN Reason: Keep Vein Open Zinc Sulfate (Zincate) 220 mg PO DAILY [facility] Last Admin: 06/06/20 08:16 Dose: 220 mg Documented by: Discontinued Medications Enoxaparin Sodium (Lovenox) 80 mg SUBCUT BID@1000,2200 [facility] Last Admin: 06/05/20 10:28 Dose: 80 mg Documented by: Enoxaparin Sodium (Lovenox) 40 mg SUBCUT BID@1000,2200 [facility] Last Admin: 06/05/20 10:28 Dose: 40 mg Documented by: Remdesivir 200 mg/ Sodium (Chloride) 250 mls @ 250 mls/hr IV ONETIME ONE Stop: 06/03/20 22:49 Last Admin: 06/04/20 00:18 Dose: 250 mls/hr Documented by: Non-Formulary Medication (Alogliptin Benzoate [Alogliptin]) 25 mg PO DAILY [facility] Non-Formulary Medication (Insulin Glarg,Human.Rec.Analog [Lantus Solostar]) 15 units SUBCUT ACBREAKFAST [facility] - Exam Quality Assessment: Supplemental Oxygen General: Alert, Oriented HEENT: Mucous Membr. Moist/[place] Neck: Supple Lungs: Normal Respiratory Effort, Decreased Breath Sounds, Crackles Cardiovascular: Regular Rate, Regular Rhythm Extremities: Normal Inspection, No Pedal Edema, Normal Capillary Refill Skin: Warm, Dry Neurological: No New Focal Deficit Psy/Mental Status: Alert, Normal Affect, Normal Mood Sepsis Event Note - Evaluation Sepsis Screening Result: No Definite Risk - Focused Exam Vital Signs: Vital Signs Temp Pulse Pulse Resp BP BP Pulse Ox 06/06/20 08:16 88 120/60 06/06/20 08:15 120/60 06/06/20 04:00 99 F 74 20 127/62 93 L 06/06/20 00:00 99.3 F 76 22 H 114/62 91 L - Problem List & Annotations (1) COVID-19 SNOMED Code(s): 137514905 Code(s): U07.1 - COVID-19 Status: Acute Current Visit: No (2) Hypoxia SNOMED Code(s): 970823956 Code(s): R09.02 - HYPOXEMIA Status: Acute Priority: High Current Visit: No (3) Palliative care patient SNOMED Code(s): 909743160, 414771211 Code(s): Z51.5 - ENCOUNTER FOR PALLIATIVE CARE Status: Acute Current Visit: No - Problem List Review Problem List Initiated/Reviewed/Updated: Yes - My Orders Last 24 Hours: My Active Orders 06/05/20 20:00 Enoxaparin [Lovenox] 60 mg SUBCUT BID 06/06/20 09:17 Positioning, Patient [RC] Q4HR 06/07/20 05:11 C-REACTIVE PROTEIN [CHEM] AM CBC WITH AUTO DIFF [HEME] AM COMPREHENSIVE METABOLIC PN,CMP [CHEM] AM INR,PT,PROTHROMBIN TIME [COAG] AM PRO B-TYPE NATRIUR PEPT,BNPPRO [CHEM] Routine 06/08/20 05:11 C-REACTIVE PROTEIN [CHEM] AM CBC WITH AUTO DIFF [HEME] AM COMPREHENSIVE METABOLIC PN,CMP [CHEM] AM 06/09/20 05:11 C-REACTIVE PROTEIN [CHEM] AM CBC WITH AUTO DIFF [HEME] AM COMPREHENSIVE METABOLIC PN,CMP [CHEM] AM - Plan Plan:: 06/04/2020 Kiko appears to be doing much better today. They have been able to wean him down off nonrebreather at 15lpm to regular mask at 7 lpm. Will continue to gradually wean down if tolerated. Labs overall have remained stable from yesterday evening and will repeat in am. Will continue with IV remdesivir and oral dexamethasone. Patient verbalized understanding. 06/05/2020 Kiko is sitting up in bed appears to be in no distress. He continues to be on regular mask at 7 L/min. Attempted to wean down and patient immediately dropped into the 80's. Will continue with supplemental oxygen. D-dimer has decreased. All other labs stable. Will decrease Lovenox to 60mg SC BID. Will closely monitor. Will continue current dexamethasone and Remdesivir treatment. Kiko verbalized understanding. Kiko is sitting up eating this morning upon my arrival. He doesn't appear to be having any difficulty with breathing. However, did place O2 sat on him and was in the high 70's which continues to be a concern. I advised Kiko he needs to keep oxygen via simple mask on at all times unless eating. After placement of simple mask at 10lpm oxygen saturation did improve to 94%. I did review patients labs today, which are stable, with Dr. Arnold and will continue with current treatment plan.
[2020-06-06] MEDS: Acetaminophen 325 MG Tab PO PRN (16:12)
[2020-06-06] MEDS: REMDESIVIR (EUA) 100 MG in Sodium Chloride 0.9% 100 ML IV SCH (22:02)
[2020-06-07] MEDS: Aspirin 81 MG Tab.EC PO SCH (07:44)
[2020-06-07] MEDS: Ascorbic Acid 500 MG Tab PO SCH (07:44)
[2020-06-07] MEDS: Cholecalciferol (Vitamin D3) 25 MCG Tab PO SCH (07:44)
[2020-06-07] MEDS: Zinc Sulfate 220 MG Cap PO SCH (07:44)
[2020-06-07] MEDS: Metoprolol Succinate 25 MG Tab.ER PO SCH (07:44)
[2020-06-07] MEDS: Simvastatin 20 MG Tab PO SCH (07:44)
[2020-06-07] MEDS: Enoxaparin 60 MG/0.6 ML Syringe SUBCUT SCH ×2 (07:45→19:40)
[2020-06-07] MEDS: Lisinopril 10 MG Tab PO SCH (07:45)
[2020-06-07] MEDS: metFORMIN 500 MG Tab PO SCH ×2 (07:45→19:40)
[2020-06-07] MEDS: Insulin Glarg,Human.Rec.Analog 100 Unit/ML SUBCUT SCH ×2 (07:46→21:21)
[2020-06-07] MEDS: Insulin Lispro 100 Units/ML 3 ML Vial SUBCUT SCH ×4 (07:46→21:22)
--- NOTE | 2020-06-07 12:55 | PCM.PN ---
- General Info Date of Service: 06/07/20 Admission Dx/Problem (Free Text): Kiko is a 79 yo male who was admitted from the ED secondary to hypoxia with positive COVID 19. Patient had been experiencing some confusion over the last week and an increase in respiratory effort. Was admitted with palliative status as patient was found to be in moderate to severe hypoxia and placed on non- rebreather at 15 lpm. Kiko did not want anything further done or transfer to outside facility. He states today he isn't feeling as well as he did yesterday, more so, just tired. Admits he didn't get a lot of sleep last night. Denies any shortness of breath unless exerting himself. States he has been doing fine getting up to go to the bathroom on his own. Had a bout of diarrhea yesterday but states that has went away. Functional Status: Reports: Pain Controlled, Tolerating Diet, Ambulating (short distance to bathroom, does get dyspneic with minimal activity ) - Review of Systems General: Reports: Weakness, Fatigue, Malaise. Denies: Fever HEENT: Reports: No Symptoms Pulmonary: Reports: Shortness of Breath. Denies: Cough Cardiovascular: Reports: Edema. Denies: Chest Pain, Lightheadedness Gastrointestinal: Denies: Abdominal Pain, Nausea, Vomiting Genitourinary: Reports: No Symptoms Musculoskeletal: Reports: No Symptoms Skin: Reports: No Symptoms Neurological: Reports: Weakness - Patient Data Vitals - Most Recent: Last Vital Signs Temp 97.1 F 06/07/20 08:00 Pulse 85 06/07/20 08:00 Resp 20 06/07/20 08:00 BP 136/60 06/07/20 08:00 Pulse Ox 96 06/07/20 08:00 Weight - Most Recent: 272 lb 9.6 oz Lab Results Last 24 Hours: Laboratory Results - last 24 hr 06/07/20 06/07/20 06/07/20 Range/Units 07:55 07:55 07:55 WBC 4.7 L (5.0-10.0) 10^3/uL RBC 4.30 L (4.50-6.00) 10^6/uL Hgb 12.5 L (14.0-18.0) g/dL Hct 37.7 L (40.0-54.0) % MCV 87.7 (82.0-94.0) fL MCH 29.1 (27.0-32.0) pg MCHC 33.2 (33.0-38.0) g/dL RDW Coeff of Rhys 14.3 (11.0-15.0) % Plt Count 220 (150-400) 10^3/uL Neut % (Auto) 74.0 (35-85) % Lymph % (Auto) 16.9 (10-55) % [place] % (Auto) 8.5 (0-16) % Eos % (Auto) 0.4 (0-5) % Baso % (Auto) 0.2 (0-3) % Neut # (Auto) 3.46 (1.80-7.00) 10^3/uL Lymph # (Auto) 0.79 L (1.00-4.80) 10^3/uL [place] # (Auto) 0.40 (0.00-0.80) 10^3/uL Eos # (Auto) 0.02 (0.00-0.45) 10^3/uL Baso # (Auto) 0.01 10^3/uL PT 10.0 (9.7-12.3) SEC INR 0.99 (0.92-1.18) Sodium 140 (136-145) mEq/L Potassium 4.4 (3.5-5.0) mEq/L Chloride 104 (98-106) mEq/L Carbon Dioxide 28 (21-32) mmol/L BUN 24 H (7-18) mg/dL Creatinine 1.2 (0.7-1.3) mg/dL Est Cr Clr Drug Dosing 54.79 mL/min Estimated GFR (MDRD) 58 L (>=60) mL/min Glucose 138 H (75-99) mg/dL Calcium 8.4 (8.4-10.1) mg/dL Total Bilirubin 0.4 (0.0-1.0) mg/dL AST 36 (15-37) U/L ALT 31 (12-78) U/L Alkaline Phosphatase 68 (46-116) U/L C-Reactive Protein 11.5 H (0.2-0.8) mg/dL NT-Pro-B Natriuret Pep 164 (0-1000) pg/mL Total Protein 6.3 L (6.4-8.2) g/dL Albumin 2.6 L (3.4-5.0) g/dL Med Orders - Current: Current Medications Acetaminophen (Tylenol) 650 mg PO Q4H PRN PRN Reason: Pain (Mild 1-3)/fever Last Admin: 06/06/20 16:12 Dose: 650 mg Documented by: Alogliptin Benzoate (Alogliptin) 25 mg PO DAILY [facility] Last Admin: 06/07/20 07:45 Dose: 25 mg Documented by: Ascorbic Acid (Vitamin C) 500 mg PO DAILY [facility] Last Admin: 06/07/20 07:44 Dose: 500 mg Documented by: Aspirin (Halfprin) 81 mg PO DAILY [facility] Last Admin: 06/07/20 07:44 Dose: 81 mg Documented by: Cholecalciferol (Vitamin D3) 125 mcg PO DAILY [facility] Last Admin: 06/07/20 07:44 Dose: 125 mcg Documented by: Dextrose/Water (Dextrose 50% In Water) 50 ml IV ASDIRECTED PRN PRN Reason: Hypoglycemia Enoxaparin Sodium (Lovenox) 60 mg SUBCUT BID [facility] Last Admin: 06/07/20 07:45 Dose: 60 mg Documented by: Glucagon (Glucagen) 1 mg IM ASDIRECTED PRN PRN Reason: Hypoglycemia Remdesivir 100 mg/ Sodium (Chloride) 100 mls @ 100 mls/hr IV Q24H [facility] Stop: 06/07/20 22:59 Last Admin: 06/06/20 22:02 Dose: 100 mls/hr Documented by: Ibuprofen (Motrin) 400 mg PO Q6H PRN PRN Reason: Pain (mild 1-3) Last Admin: 06/04/20 14:43 Dose: 400 mg Documented by: Insulin Glargine (Lantus) 60 unit SUBCUT BEDTIME [facility] Last Admin: 06/06/20 20:04 Dose: 60 units Documented by: Insulin Glargine (Lantus) 15 unit SUBCUT DAILY [facility] Last Admin: 06/07/20 07:46 Dose: 15 units Documented by: Insulin Human Lispro (Humalog) 0 unit SUBCUT WITHMEALSANDBED [facility]; Protocol Last Admin: 06/07/20 11:41 Dose: 6 units Documented by: Lisinopril (Prinivil) 10 mg PO DAILY [facility] Last Admin: 06/07/20 07:45 Dose: 10 mg Documented by: Metformin HCl (Glucophage) 500 mg PO BID [facility] Last Admin: 06/07/20 07:45 Dose: 500 mg Documented by: Metoprolol Succinate (Toprol Xl) 25 mg PO DAILY [facility] Last Admin: 06/07/20 07:44 Dose: 25 mg Documented by: Simvastatin (Zocor) 20 mg PO DAILY [facility] Last Admin: 06/07/20 07:44 Dose: 20 mg Documented by: Sodium Chloride (Saline Flush) 10 ml FLUSH ASDIRECTED PRN PRN Reason: Keep Vein Open Zinc Sulfate (Zincate) 220 mg PO DAILY [facility] Last Admin: 06/07/20 07:44 Dose: 220 mg Documented by: Discontinued Medications Enoxaparin Sodium (Lovenox) 80 mg SUBCUT BID@1000,2200 [facility] Last Admin: 06/05/20 10:28 Dose: 80 mg Documented by: Enoxaparin Sodium (Lovenox) 40 mg SUBCUT BID@1000,2200 [facility] Last Admin: 06/05/20 10:28 Dose: 40 mg Documented by: Remdesivir 200 mg/ Sodium (Chloride) 250 mls @ 250 mls/hr IV ONETIME ONE Stop: 06/03/20 22:49 Last Admin: 06/04/20 00:18 Dose: 250 mls/hr Documented by: Non-Formulary Medication (Alogliptin Benzoate [Alogliptin]) 25 mg PO DAILY [facility] Non-Formulary Medication (Insulin Glarg,Human.Rec.Analog [Lantus Solostar]) 15 units SUBCUT ACBREAKFAST [facility] - Exam Quality Assessment: Supplemental Oxygen General: Alert, Oriented, Cooperative HEENT: Mucous Membr. Moist/Daniels Neck: Supple Lungs: Decreased Breath Sounds Cardiovascular: Regular Rate, Regular Rhythm GI/Abdominal Exam: Normal Bowel Sounds, Soft, Non-Tender Extremities: Normal Inspection, Pedal Edema (1+) Skin: Warm, Dry Neurological: No New Focal Deficit Sepsis Event Note - Evaluation Sepsis Screening Result: No Definite Risk - Focused Exam Vital Signs: Vital Signs Temp Pulse Pulse Resp BP BP Pulse Ox 06/07/20 08:00 97.1 F 85 20 136/60 96 06/07/20 07:45 136/60 06/07/20 07:44 85 136/60 06/07/20 04:00 99.0 F 82 22 H 122/60 90 L - Problem List & Annotations (1) COVID-19 SNOMED Code(s): 297837367 Code(s): U07.1 - COVID-19 Status: Acute Priority: High Current Visit: Yes (2) Hypoxia SNOMED Code(s): 727140474 Code(s): R09.02 - HYPOXEMIA Status: Acute Priority: High Current Visit: Yes (3) Palliative care patient SNOMED Code(s): 913588669, 613261644 Code(s): Z51.5 - ENCOUNTER FOR PALLIATIVE CARE Status: Acute Priority: High Current Visit: Yes - Problem List Review Problem List Initiated/Reviewed/Updated: Yes - Assessment Assessment:: COVID 19 Weakness Palliative Care patient - Plan Plan:: 06/04/2020 Kiko appears to be doing much better today. They have been able to wean him down off nonrebreather at 15lpm to regular mask at 7 lpm. Will continue to gradually wean down if tolerated. Labs overall have remained stable from yesterday evening and will repeat in am. Will continue with IV remdesivir and oral dexamethasone. Patient verbalized understanding. 06/05/2020 Kiko is sitting up in bed appears to be in no distress. He continues to be on regular mask at 7 L/min. Attempted to wean down and patient immediately dropped into the 80's. Will continue with supplemental oxygen. D-dimer has decreased. All other labs stable. Will decrease Lovenox to 60mg SC BID. Will closely monitor. Will continue current dexamethasone and Remdesivir treatment. Kiko verbalized understanding. Kiko is sitting up eating this morning upon my arrival. He doesn't appear to be having any difficulty with breathing. However, did place O2 sat on him and was in the high 70's which continues to be a concern. I advised Kiko he needs to keep oxygen via simple mask on at all times unless eating. After placement of simple mask at 10lpm oxygen saturation did improve to 94%. I did review patients labs today, which are stable, with Dr. Arnold and will continue with current treatment plan. 06-07-2020 Patient sitting upright in bed, did eat his breakfast. Appears stable. Still requires oxygen at 15 liters to keep sats greater than 93%. Is compliant with the oxygen mask. Labs are stable, CRP 11.5. Afebrile. Blood pressure stable. Will complete last day of Remdesivir today. Continue steroids. Oxygen to keep sats greater than 94%. Possible transfer to swing bed tomorrow.
[2020-06-07] MEDS: Acetaminophen 325 MG Tab PO PRN (15:22)
[2020-06-07] MEDS: REMDESIVIR (EUA) 100 MG in Sodium Chloride 0.9% 100 ML IV SCH (21:26)
[2020-06-08] MEDS: Enoxaparin 60 MG/0.6 ML Syringe SUBCUT SCH (07:42)
[2020-06-08] MEDS: Aspirin 81 MG Tab.EC PO SCH (07:43)
[2020-06-08] MEDS: metFORMIN 500 MG Tab PO SCH (07:43)
[2020-06-08] MEDS: Ascorbic Acid 500 MG Tab PO SCH (07:43)
[2020-06-08] MEDS: Simvastatin 20 MG Tab PO SCH (07:43)
[2020-06-08] MEDS: Lisinopril 10 MG Tab PO SCH (07:43)
[2020-06-08] MEDS: Zinc Sulfate 220 MG Cap PO SCH (07:43)
[2020-06-08] MEDS: Insulin Lispro 100 Units/ML 3 ML Vial SUBCUT SCH (07:44)
[2020-06-08] MEDS: Cholecalciferol (Vitamin D3) 25 MCG Tab PO SCH (07:44)
[2020-06-08] MEDS: Metoprolol Succinate 25 MG Tab.ER PO SCH (07:44)
[2020-06-08] MEDS: Insulin Glarg,Human.Rec.Analog 100 Unit/ML SUBCUT SCH (07:45)
[2020-06-08 08:26] LABS: CHLORIDE,CL 104 mEq/L (98-106); SODIUM,NA 141 mEq/L (136-145)
--- NOTE | 2020-06-08 08:41 | PCM.DCSUM1 ---
Discharge Summary - Hospital Course Free Text/Narrative:: Kiko is a 79 year old male who presented to ER with complaints of not feeling well, fatigue and increased confusion. Patient "felt out of sorts". Admits to shortness of breath, was found to have an oxygen sat of 81% on room air on arrival. Patient found to be COVID positive. Did require oxygen at 15 liters by NRB to maintain sats. Transfer was discussed with patient but was against it and wanted to remain a DNR although stressed to him that he may from this virus. Admitted and started on IV Remdesivir. Steroids held due to allergy. WBC was normal. D-Dimer 1.22. Sodium 135. CRP 9.1. Diagnosis: Stroke: No Modified [place] [facility] Scale: No Symptoms at All Modified Inga Scale Score: 0 - Discharge Data Discharge Date: 06/08/20 Discharge Disposition: DC/Tfer W/I Hosp To [place] [id number] Condition: Fair - Referral to Home Health Primary Care Physician: Erika Melara NP - Discharge Diagnosis/Problem(s) (1) COVID-19 SNOMED Code(s): 270379030 ICD Code: U07.1 - COVID-19 Status: Acute Priority: High Current Visit: Yes (2) Hypoxia SNOMED Code(s): 317146841 ICD Code: R09.02 - HYPOXEMIA Status: Acute Priority: High Current Visit: Yes (3) Palliative care patient SNOMED Code(s): 848587243, 468368824 ICD Code: Z51.5 - ENCOUNTER FOR PALLIATIVE CARE Status: Acute Priority: High Current Visit: Yes - Patient Summary/Data Complications: none Hospital Course: Patient states is feeling better today. Is sitting upright in bed, eating his breakfast. Does not appear to be in respiratory distress. Still requiring high amounts of oxygen to maintain his sats, will vary from 90-95% on 15 liters. Have been changing positions, lies prone at times. WBC remains normal at 5.4. D-dimer has improved, Lovenox dose was reduced. Electrolytes normal. CRP high today yet at 14.8. Has finished 5 day course of IV Remdesivir. Lung sounds diminished with crackles in the bases. Edema 1+. Having normal stools now, voiding without concern. Will transfer patient to [facility] for ongoing oxygen, physical therapy and have social service consult for discharge plan. - Patient Instructions Diet: Usual Diet as Tolerated Activity: As Tolerated - Discharge Plan *PRESCRIPTION DRUG MONITORING PROGRAM REVIEWED*: Not Applicable *COPY OF PRESCRIPTION DRUG MONITORING REPORT IN PATIENT JACLYN: Not Applicable Home Medications: Home Meds Aspirin [Lo-Dose Aspirin EC] 81 mg PO DAILY 01/25/18 [History] Cholecalciferol (Vitamin D3) [Vitamin D3] 5,000 units PO DAILY 01/25/18 [History] Cinnamon Bark [Cinnamon] 2,000 mg PO DAILY 01/25/18 [History] Insulin Glarg,Human.Rec.Analog [Lantus Solostar] 60 units SQ BEDTIME 01/25/18 [History] Lisinopril 10 mg PO DAILY 01/25/18 [History] Metoprolol Succinate [Toprol Xl] 25 mg PO DAILY 01/25/18 [History] Multivitamin [Multivitamins] 1 each PO DAILY 01/25/18 [History] Simvastatin [Zocor] 20 mg PO DAILY 01/25/18 [History] metFORMIN HCl [Metformin HCl] 1,000 mg PO BID 01/25/18 [History] Acetaminophen [Tylenol] 1 - 2 tab PO Q4H 06/03/20 [History] Alogliptin Benzoate [Alogliptin] 25 mg PO DAILY 06/03/20 [History] Insulin Aspart [NovoLOG] 15 units SUBCUT ACDINNER 06/03/20 [History] Insulin Aspart [NovoLOG] 50 units SUBCUT ACLUNCH 06/03/20 [History] Insulin Glarg,Human.Rec.Analog [Lantus Solostar] 15 units SUBCUT ACBREAKFAST 06/03/20 [History] Forms: ED Department Discharge Referrals: Erika Melara CHEMICAL MACHINE TENDER [Primary Care Provider] - - Discharge Summary/Plan Comment DC Time >30 min.: Yes Discharge Summary/Plan Comment: Transfer to swing bed Time with patient 15 minutes Time for orders 10 minutes time for documentation 10 minutes - General Info Date of Service: 06/08/20 Admission Dx/Problem (Free Text: Kiko is a 79 yo male who was admitted from the ED secondary to hypoxia with positive COVID 19. Patient had been experiencing some confusion over the last week and an increase in respiratory effort. Was admitted with palliative status as patient was found to be in moderate to severe hypoxia and placed on non- rebreather at 15 lpm. Kiko did not want anything further done or transfer to outside facility. He states today he isn't feeling as well as he did yesterday, more so, just tired. Admits he didn't get a lot of sleep last night. Denies any shortness of breath unless exerting himself. States he has been doing fine getting up to go to the bathroom on his own. Had a bout of diarrhea yesterday but states that has went away. Functional Status: Reports: Pain Controlled, Tolerating Diet, Ambulating - Review of Systems General: Reports: Weakness, Fatigue, Malaise. Denies: Fever, Chills HEENT: Reports: Rhinitis. Denies: Ear Pain, Sinus Congestion Pulmonary: Reports: Shortness of Breath, Cough Cardiovascular: Reports: Edema. Denies: Chest Pain, Lightheadedness Gastrointestinal: Denies: Abdominal Pain, Nausea, Vomiting Genitourinary: Reports: No Symptoms Musculoskeletal: Reports: No Symptoms Skin: Reports: No Symptoms Neurological: Reports: Weakness - Patient Data Vitals - Most Recent: Last Vital Signs Temp 98.7 F 06/08/20 08:00 Pulse 87 06/08/20 08:00 Resp 20 06/08/20 08:00 BP 126/50 L 06/08/20 08:00 Pulse Ox 95 06/08/20 08:00 Weight - Most Recent: 272 lb 9.6 oz Lab Results - Last 24 hrs: Laboratory Results - last 24 hr 06/08/20 06/08/20 Range/Units 08:05 08:05 WBC 5.4 (5.0-10.0) 10^3/uL RBC 4.32 L (4.50-6.00) 10^6/uL Hgb 12.4 L (14.0-18.0) g/dL Hct 37.9 L (40.0-54.0) % MCV 87.7 (82.0-94.0) fL MCH 28.7 (27.0-32.0) pg MCHC 32.7 L (33.0-38.0) g/dL RDW Coeff of Rhys 14.3 (11.0-15.0) % Plt Count 289 (150-400) 10^3/uL Neut % (Auto) 77.5 (35-85) % Lymph % (Auto) 12.8 (10-55) % [place] % (Auto) 8.9 (0-16) % Eos % (Auto) 0.6 (0-5) % Baso % (Auto) 0.2 (0-3) % Neut # (Auto) 4.16 (1.80-7.00) 10^3/uL Lymph # (Auto) 0.69 L (1.00-4.80) 10^3/uL [place] # (Auto) 0.48 (0.00-0.80) 10^3/uL Eos # (Auto) 0.03 (0.00-0.45) 10^3/uL Baso # (Auto) 0.01 10^3/uL Sodium 141 (136-145) mEq/L Potassium 4.2 (3.5-5.0) mEq/L Chloride 104 (98-106) mEq/L Carbon Dioxide 29 (21-32) mmol/L BUN 20 H (7-18) mg/dL Creatinine 1.0 (0.7-1.3) mg/dL Est Cr Clr Drug Dosing 65.74 mL/min Estimated GFR (MDRD) > 60 (>=60) mL/min Glucose 118 H (75-99) mg/dL Calcium 8.3 L (8.4-10.1) mg/dL Total Bilirubin 0.5 (0.0-1.0) mg/dL AST 27 (15-37) U/L ALT 31 (12-78) U/L Alkaline Phosphatase 80 (46-116) U/L C-Reactive Protein 14.8 H (0.2-0.8) mg/dL Total Protein 6.4 (6.4-8.2) g/dL Albumin 2.6 L (3.4-5.0) g/dL Med Orders - Current: Current Medications Acetaminophen (Tylenol) 650 mg PO Q4H PRN PRN Reason: Pain (Mild 1-3)/fever Last Admin: 06/07/20 15:22 Dose: 650 mg Documented by: Alogliptin Benzoate (Alogliptin) 25 mg PO DAILY [facility] Last Admin: 06/08/20 07:44 Dose: 25 mg Documented by: Ascorbic Acid (Vitamin C) 500 mg PO DAILY [facility] Last Admin: 06/08/20 07:43 Dose: 500 mg Documented by: Aspirin (Halfprin) 81 mg PO DAILY [facility] Last Admin: 06/08/20 07:43 Dose: 81 mg Documented by: Cholecalciferol (Vitamin D3) 125 mcg PO DAILY [facility] Last Admin: 06/08/20 07:44 Dose: 125 mcg Documented by: Dextrose/Water (Dextrose 50% In Water) 50 ml IV ASDIRECTED PRN PRN Reason: Hypoglycemia Enoxaparin Sodium (Lovenox) 60 mg SUBCUT BID [facility] Last Admin: 06/08/20 07:42 Dose: 60 mg Documented by: Glucagon (Glucagen) 1 mg IM ASDIRECTED PRN PRN Reason: Hypoglycemia Ibuprofen (Motrin) 400 mg PO Q6H PRN PRN Reason: Pain (mild 1-3) Last Admin: 06/04/20 14:43 Dose: 400 mg Documented by: Insulin Glargine (Lantus) 60 unit SUBCUT BEDTIME [facility] Last Admin: 06/07/20 21:21 Dose: 60 units Documented by: Insulin Glargine (Lantus) 15 unit SUBCUT DAILY [facility] Last Admin: 06/08/20 07:45 Dose: 15 units Documented by: Insulin Human Lispro (Humalog) 0 unit SUBCUT WITHMEALSANDBED [facility]; Protocol Last Admin: 06/08/20 07:44 Dose: Not Given Documented by: Lisinopril (Prinivil) 10 mg PO DAILY [facility] Last Admin: 06/08/20 07:43 Dose: 10 mg Documented by: Metformin HCl (Glucophage) 500 mg PO BID [facility] Last Admin: 06/08/20 07:43 Dose: 500 mg Documented by: Metoprolol Succinate (Toprol Xl) 25 mg PO DAILY [facility] Last Admin: 06/08/20 07:44 Dose: 25 mg Documented by: Simvastatin (Zocor) 20 mg PO DAILY [facility] Last Admin: 06/08/20 07:43 Dose: 20 mg Documented by: Sodium Chloride (Saline Flush) 10 ml FLUSH ASDIRECTED PRN PRN Reason: Keep Vein Open Zinc Sulfate (Zincate) 220 mg PO DAILY [facility] Last Admin: 06/08/20 07:43 Dose: 220 mg Documented by: Discontinued Medications Enoxaparin Sodium (Lovenox) 80 mg SUBCUT BID@1000,2200 [facility] Last Admin: 06/05/20 10:28 Dose: 80 mg Documented by: Enoxaparin Sodium (Lovenox) 40 mg SUBCUT BID@1000,2200 [facility] Last Admin: 06/05/20 10:28 Dose: 40 mg Documented by: Remdesivir 200 mg/ Sodium (Chloride) 250 mls @ 250 mls/hr IV ONETIME ONE Stop: 06/03/20 22:49 Last Admin: 06/04/20 00:18 Dose: 250 mls/hr Documented by: Remdesivir 100 mg/ Sodium (Chloride) 100 mls @ 100 mls/hr IV Q24H [facility] Stop: 06/07/20 22:59 Last Admin: 06/07/20 21:26 Dose: 100 mls/hr Documented by: Non-Formulary Medication (Alogliptin Benzoate [Alogliptin]) 25 mg PO DAILY [facility] Non-Formulary Medication (Insulin Glarg,Human.Rec.Analog [Lantus Solostar]) 15 units SUBCUT ACBREAKFAST [facility] - Exam Quality Assessment: Reports: Supplemental Oxygen General: Reports: Alert, Oriented HEENT: Reports: Mucous Membr. Moist/[place] Neck: Reports: Supple Lungs: Reports: Decreased Breath Sounds, Crackles Cardiovascular: Reports: Regular Rate, Regular Rhythm GI/Abdominal Exam: Normal Bowel Sounds, Soft, Non-Tender Extremities: Normal Inspection, Pedal Edema (1+) Skin: Reports: Warm, Dry Neurological: Reports: No New Focal Deficit
== END 2020-06-08 08:42 | disposition swing bed (61) | DRG 179 ==
LOC: CC.ED 19:15 → CC.MS 21:26 → UNDOADMIN 22:30 → CC.MS 22:30
PROVIDERS: ADMIT Physician Assistant Medical; ATTEND Family Medicine
PROC: XW033E5 Introduction of Remdesivir Anti-infective into Peripheral Vein, Percutaneous Approach, New Technology Group 5 (ICD-10-PCS; principal; 2020-06-03)
DX: U07.1 COVID-19 (principal); H26.9 Unspecified cataract; H54.7 Unspecified visual loss; E78.00 Pure hypercholesterolemia, unspecified; I10 Essential (primary) hypertension; N40.0 Benign prostatic hyperplasia without lower urinary tract symptoms; M19.90 Unspecified osteoarthritis, unspecified site; M17.10 Unilateral primary osteoarthritis, unspecified knee; M16.10 Unilateral primary osteoarthritis, unspecified hip; M18.9 Osteoarthritis of first carpometacarpal joint, unspecified; Z51.5 Encounter for palliative care; R20.2 Paresthesia of skin; E11.9 Type 2 diabetes mellitus without complications; R09.02 Hypoxemia; E66.9 Obesity, unspecified; Z99.81 Dependence on supplemental oxygen; E55.9 Vitamin D deficiency, unspecified; Z98.49 Cataract extraction status, unspecified eye; Z90.89 Acquired absence of other organs; Z79.82 Long term (current) use of aspirin; Z79.4 Long term (current) use of insulin; Z79.899 Other long term (current) drug therapy; Z88.8 Allergy status to other drugs, medicaments and biological substances; Z68.37 Body mass index [BMI] 37.0-37.9, adult
CPT/HCPCS: 36415; 71046; 80053; 83605; 85025; 85379; 86140; 99285; U0002; 83880; 85610; A9270-GY; J1650; J1815-GY; J7050